=== PATIENT | female | born 1990 | race Caucasian/White ===

== ENCOUNTER 2020-02-11 11:14 | Emergency (ER) | payer OTHER, SELFPAY ==
[2020-02-11 11:25] VITALS: BP 122/74; PULSE 70; RESP 16; TEMP 37.3; O2SAT 99
--- NOTE | 2020-02-11 12:38 | ED.GENADULT ---
HPI - General Adult General Chief complaint: Upper Respiratory Infection Stated complaint: Fever/Cough/ear pain Time Seen by Provider: 02/11/20 12:28 Source: patient and RN notes reviewed Mode of arrival: ambulatory Limitations: no limitations History of Present Illness HPI narrative: 29-year-old female presents with complaints of upper respiratory infection symptoms, fever, body aches, low-grade fever, cough, RT ear pain, and intermittent headaches (not the worst of her life) for the past 2 days. No treatment. George said that they took her temperature at school this morning noted at 99.2 Fahrenheit. Dry cough with intermittent productive cough (green phlegm). Rhinorrhea and nasal congestion. Exacerbating factors smoke exposure. Low-grade fevers, highest 99.2 F, tympanic without chills. No nausea, vomiting, and abdominal pain. Denies chest pain, dyspnea, coughing up blood, difficulty swallowing, jaw pain, dental pain, facial pain, foreign body sensation, and rash. George denies being , LMP 02/06/20. Some parts of this dictation were generated by voice recognition software and may contain typographical and/or grammatical inaccuracies. Related Data Home Medications Medication Instructions Recorded Confirmed buprenorphine HCl 8 mg SUBLINGUAL DAILY 02/11/20 02/11/20 buprenorphine HCl 12 PO DAILY 02/11/20 Allergies Allergy/AdvReac Type Severity Reaction Status Date / Time No Known Allergies Allergy Verified 02/11/20 11:35 Review of Systems Review of Systems: Narrative: CONSTITUTIONAL: Complains of low-grade fever. Denies chills, sweats. EYES: Denies visual changes, redness, discharge. ENT: Complains of rhinorrhea, congestion, RT otalgia. Denies sore throat. CARDIOVASCULAR: Denies chest pain, palpitations, edema. RESPIRATORY: Denies dyspnea, wheezing. Complains of dry cough, intermittent productive cough. GASTROINTESTINAL: Denies abdominal pain, nausea, vomiting, diarrhea. GENITOURINARY: Denies dysuria, hematuria, abnormal discharge. SKIN: Denies rash or itching. MUSCULOSKELETAL: Denies acute back pain, joint pain. Complains of myalgia. NEUROLOGIC: Denies numbness or focal weakness. PSYCHIATRIC: Denies anxiety or depression. Complains of intermittent LASSITER. All systems reviewed & are unremarkable except as noted in HPI and below. [facility] Past Medical History Medical History (Updated 02/12/20 @ 00:00 by Andrew Randhawa) Cubital tunnel syndrome Substance abuse Surgical History Surgical History (Updated 02/11/20 @ 12:49 by ISRRAEL Mcpherson) S/P cubital tunnel release LT arm Family History Family History (Updated 02/11/20 @ 12:50 by ISRRAEL Mcpherson) Father Asthma Grandparent Diabetes mellitus Grandparent Abnormality of lung Social History Social History (Updated 02/11/20 @ 12:51 by ISRRAEL Mcpherson) Smoking packs per day: 0.5 Smoking cigarettes per day: 10.0 Years smoked: 12 Smoking pack-years: 6.00 Smoking status: Current every day smoker Second hand tobacco smoke exposure: Yes Alcohol intake: current Substance use: former Substance use type: opiates Other substance usage details: Currently taken Suboxone daily Living arrangements: with family Occupation/Education: student Gender identity (if verbalized by the patient): Female Comments At time of signature, agree with nurse past medical, surgical, social, and family history. There is no relevant family history pertinent to the presenting complaint. Exam Narrative: Exam Narrative: GENERAL: This is a well-nourished, well-developed patient, in no apparent distress. Speaks in full sentences and ambulates with steady gait without dyspnea. HEAD: normocephalic, atraumatic. EYES: PERRL. Sclera clear/white. Vision is grossly intact. EARS: External ears normal, auditory canals clear and without drainage, TMs normal without perforation. Hearing grossly intact. NOSE: External nos
== END 2020-02-11 12:50 | disposition home or self-care (01) ==
PROVIDERS: Emergency Provider Nurse Practitioner Family
DX: J06.9 Acute upper respiratory infection, unspecified (principal); F17.210 Nicotine dependence, cigarettes, uncomplicated
CPT/HCPCS: 99203; G0463

== ENCOUNTER 2021-02-18 13:23 | Emergency (ER) | payer OTHER, SELFPAY ==
[2021-02-18 13:44] VITALS: BP 124/66; PULSE 86; RESP 16; TEMP 36.7; O2SAT 98
--- NOTE | 2021-02-18 14:01 | ED.GENADULT ---
HPI - General Adult General Chief complaint: Urogenital-Female Stated complaint: Poss uti Time Seen by Provider: 02/18/21 14:01 Source: patient and RN notes reviewed (discharge information entered for triage note) Mode of arrival: ambulatory Limitations: no limitations History of Present Illness HPI narrative: 30-year-old 17 weeks gestation female presents with intermittent pelvic discomfort and moderate blood noted on a dip stick only 1 day ago. Makayla reports having intermittent pelvic discomfort and moderate blood on a urine dip stick on Saturday02/17/2021, no further discomfort at this time. Makayla reports she contacted her MD and was [facility] to [facility]. No treatment. Denies dysuria (no burning, frequency, and urgency). No treatment.? Denies fever or chills. No vaginal discharge.? No concerns for STDs. Denies rough intercourse. No exacerbating factors.? Denies visible hematuria or vaginal bleeding. No flank pain. Denies nausea, vomiting, and abdominal pain. Tolerating liquids well. LMP unknowns reports a long time ago. Remains active. Makayla reports having movement prior to this provider entering exam room for assessment. The patient reports she have not been diagnosed with COVID-19. The patient reports she received the first COVID-19 vaccine February 08, 2021. The patient reports she is not waiting for the results of a COVID-19 lab test. The patient reports she do not have weakness, or fatigue. The patient reports she do not have a new or worsening cough or shortness of breath. Denies chest pain. The patient reports she do not have any rhinorrhea, congestion, sore throat, loss of taste or smell, and diarrhea. Denies recent traveling. Denies concerns for COVID-19 or exposures been home with limited outdoor exposure except for essential household needs, work, and return home. At this time, patient is not suspected of having COVID-19. Some parts of this dictation were generated by voice recognition software and may contain typographical and/or grammatical inaccuracies. Related Data Home Medications Medication Instructions Recorded Confirmed buprenorphine HCl 8 mg SUBLINGUAL DAILY 02/11/20 02/11/20 buprenorphine HCl 12 PO DAILY 02/11/20 Allergies Allergy/AdvReac Type Severity Reaction Status Date / Time No Known Allergies Allergy Verified 02/18/21 14:00 Review of Systems Review of Systems: Narrative: CONSTITUTIONAL: Denies fever, chills, sweats. EYES: Denies visual changes, redness, discharge. ENT: Denies rhinorrhea, congestion, sore throat, otalgia. CARDIOVASCULAR: Denies chest pain, palpitations, edema. RESPIRATORY: Denies dyspnea, wheezing, cough. GASTROINTESTINAL: Denies abdominal pain, nausea, vomiting, diarrhea. GENITOURINARY: Denies dysuria (burning, frequency, and urgency), visible hematuria, abnormal discharge. Complains of pelvic discomfort-(Resolved) and moderate blood noted on a dip stick SKIN: Denies rash or itching. MUSCULOSKELETAL: Denies acute back pain, joint pain, or myalgia. NEUROLOGIC: Denies numbness or focal weakness. PSYCHIATRIC: Denies anxiety or depression. All systems reviewed & are unremarkable except as noted in HPI and below. [facility] Past Medical History Medical History Cubital tunnel syndrome Substance abuse Surgical History Surgical History S/P cubital tunnel release LT arm Family History Family History Father Asthma Grandparent Diabetes mellitus Grandparent Abnormality of lung Social History Social History Smoking packs per day: 0.5 Smoking cigarettes per day: 10.0 Years smoked: 12 Smoking pack-years: 6.00 Smoking status: Current every day smoker Second hand tobacco smoke exposure: Yes Alcohol intake: cu
--- NOTE | 2021-02-18 14:17 | PC.NURSE ---
[facility] [address]. D ALBIN RN
== END 2021-02-18 14:33 | disposition home or self-care (01) ==
PROVIDERS: Emergency Provider Nurse Practitioner Family; PCP Internal Medicine
DX: O90.89 Other complications of the puerperium, not elsewhere classified (principal); R31.9 Hematuria, unspecified; Z3A.17 17 weeks gestation of pregnancy; O99.332 Smoking (tobacco) complicating pregnancy, second trimester; F17.210 Nicotine dependence, cigarettes, uncomplicated
CPT/HCPCS: 81003; 87077; 87086; 87088; 99213; G0463

== ENCOUNTER 2021-03-15 08:53 | Emergency (ER) | payer OTHER, SELFPAY ==
[2021-03-15 09:01] VITALS: BP 103/48; PULSE 66; RESP 16; TEMP 36.3; O2SAT 98
--- NOTE | 2021-03-15 09:03 | ED.URI ---
HPI - URI/Sore Throat General Chief Complaint: Upper Respiratory Infection Stated Complaint: Sore Throat,Congestion Time Seen by Provider: 03/15/21 09:03 Source: patient and RN notes reviewed History of Present Illness HPI Narrative: Patient is a 30-year-old female who presents the urgent care with complaints of sore throat and congestion. Patient states that she is also had some ear fullness . States that she was swabbed at [facility] for both Covid and flu, which were negative. Patient states that she is 21 weeks and is currently not taking anything [id number] for her symptoms. Patient denies of any fever, nausea, vomiting. States that her symptoms started 3 days ago. No other acute complaints. No acute distress noted. Patient aware of the plan of care. Some parts of this dictation were generated by voice recognition software and may contain typographical and/or grammatical inaccuracies. Related Data Home Medications Medication Instructions Recorded Confirmed buprenorphine HCl 8 mg SUBLINGUAL DAILY 03/15/21 03/15/21 fluoxetine 20 mg PO DAILY 03/15/21 03/15/21 vit no.[id number] 1 tablet PO DAILY 03/15/21 03/15/21 [ Vitamin] Allergies Allergy/AdvReac Type Severity Reaction Status Date / Time No Known Allergies Allergy Verified 03/15/21 09:12 Review of Systems Review of Systems: Narrative: CONSTITUTIONAL: Denies fever, chills, or sweats. EYES: Denies visual changes, redness, or discharge. ENT: Reports of sore throat, bilateral ear fullness and congestion CARDIOVASCULAR: Denies chest pain, palpitations, or edema. RESPIRATORY: Denies cough or dyspnea. GASTROINTESTINAL: Denies abdominal pain, nausea, vomiting, or diarrhea. GENITOURINARY: Denies dysuria or hematuria. SKIN: Denies rash or itching. MUSCULOSKELETAL: Denies back pain, joint pain, or myalgia. NEUROLOGIC: Denies headache, numbness, or weakness. All other systems reviewed are negative, except as documented in HPI. [facility] Family History Family History (Updated 07/22/14 @ 07:13 by DOCTOR UNKNOWN) Mother Depression Grandparent Hypertension Family history of Alzheimer's disease Father Asthma Other Family history of mental disorder Social History Social History Second hand tobacco smoke exposure: Yes Alcohol intake: current Comments At the time of my signature, I reviewed and agree with the nursing past medical, surgical, social, and family history. There is no relevant family history pertinent to the patient complaint. Exam Narrative: Exam Narrative: GENERAL: This is a well-nourished, well-developed patient, in no apparent distress. HEAD: normocephalic, atraumatic. EYES: PERRL. Sclera clear/white. Vision is grossly intact. EARS: External ears normal, auditory canals clear and without drainage, TMs normal without perforation. Hearing grossly intact. NOSE: External nose normal with no obvious nasal discharge, nares without redness, no rhinorrhea. THROAT: Mucous membranes moist, posterior pharynx clear. Moderate postnasal drainage NECK: Neck supple, non-tender without lymphadenopathy, masses or thyromegaly. CARDIOVASCULAR: Regular rate and rhythm without murmurs, gallops, or rubs. RESPIRATORY: Clear to auscultation. Breath sounds equal bilaterally. No wheezes, rales, or rhonchi. SKIN: warm, intact with no suspicious lesions or rash, good texture and turgor. NEURO: awake, alert, and oriented to person, place and time. There were no obvious focal neurologic abnormalities. EXTREMITIES: No clubbing, cyanosis, or edema. Course Vital Signs Vital signs: Vital Signs Temperature 97.3 F L 03/15/21 09:01 Pulse Rate 66 03/15/21 09:01 Respiratory Rate 16 03/15/21 09:01 Blood Pressure 103/48 L 03/15/21 09:01 Pulse Oximetry 98 03/15/21 09:01 Temperature 97.3 F L 03/15/21 09:01 Pulse Rate 66 03/15/21 09:01 Respiratory Rate 16 03/15/21 09:01 Blood Pressure 103/48 L 04
== END 2021-03-15 09:20 | disposition home or self-care (01) ==
PROVIDERS: Emergency Provider Nurse Practitioner Family
DX: J02.9 Acute pharyngitis, unspecified (principal); F41.9 Anxiety disorder, unspecified
CPT/HCPCS: 87081; 87880; 99213; G0463

== ENCOUNTER 2021-04-10 09:51 | Emergency (ER) | payer OTHER, SELFPAY ==
[2021-04-10 09:56] VITALS: BP 113/58; PULSE 67; RESP 20; TEMP 36.4; O2SAT 98
--- NOTE | 2021-04-10 10:15 | ED.GENADULT ---
HPI - General Adult General Chief complaint: Nausea/Vomiting/Diarrhea Stated complaint: nausea weak Time Seen by Provider: 04/10/21 10:16 Source: patient and RN notes reviewed Mode of arrival: ambulatory Limitations: no limitations History of Present Illness HPI narrative: 30-year-old 25 weeks gestation female presents with complaints of increase heartburn, nausea, and intermittent vomiting, for the past 3 days. Lory reports increasing symptoms with . Keeping down chicken noodle soup and small amounts of water. Here today for omeprazole. No diarrhea, constipation, or abdominal pain. Tolerating some po intake. Saltine crackers and other home remedies without relief. Exacerbating factors consist of eating and drinking. Denies fever or chills. Denies headache, dizziness, back pain, dysuria, and blood in stool. Denies pelvic pain, vaginal discharge, or hematuria. Remains active. The patient reports she have not been diagnosed with COVID-19. The patient reports she recieved 2 Pfizer COVID-19 vaccines. The patient reports she is not waiting for the results of a COVID-19 lab test. The patient reports she do not have sweats, weakness, or fatigue. The patient reports she do not have a new or worsening cough or shortness of breath. Denies chest pain. The patient reports she do not have any rhinorrhea, congestion, sore throat, loss of taste or smell. Denies recent traveling. Denies concerns for COVID-19 or exposures been home with limited outdoor exposure except for essential household needs, work, and return home. At this time, patient is not suspected of having COVID-19. Some parts of this dictation were generated by voice recognition software and may contain typographical and/or grammatical inaccuracies. Related Data Home Medications Medication Instructions Recorded Confirmed buprenorphine HCl See Rx Instructions .ROUTE .COMPLEX 04/10/21 04/10/21 vit no.[id number] 1 tablet PO DAILY 04/10/21 04/10/21 [Classic ] Allergies Allergy/AdvReac Type Severity Reaction Status Date / Time No Known Allergies Allergy Verified 04/10/21 10:05 Review of Systems Review of Systems: Narrative: CONSTITUTIONAL: Denies fever, chills, sweats. EYES: Denies visual changes, redness, discharge. ENT: Denies rhinorrhea, congestion, sore throat, otalgia. CARDIOVASCULAR: Denies chest pain, palpitations, edema. RESPIRATORY: Denies dyspnea, wheezing, cough. GASTROINTESTINAL: Denies abdominal pain, diarrhea. Complains of vomiting and nausea. GENITOURINARY: Denies dysuria, hematuria, abnormal discharge. SKIN: Denies rash or itching. MUSCULOSKELETAL: Denies acute back pain, joint pain, or myalgia. NEUROLOGIC: Denies numbness or focal weakness. PSYCHIATRIC: Denies anxiety or depression. All systems reviewed & are unremarkable except as noted in HPI and below. [facility] Past Medical History Medical History Cubital tunnel syndrome Substance abuse Surgical History Surgical History S/P cubital tunnel release LT arm Family History Family History Father Asthma Grandparent Diabetes mellitus Grandparent Abnormality of lung Social History Social History Smoking packs per day: 0.5 Smoking cigarettes per day: 10.0 Years smoked: 12 Smoking pack-years: 6.00 Smoking status: Current every day smoker Second hand tobacco smoke exposure: Yes Alcohol intake: current Substance use: former Substance use type: opiates Other substance usage details: Currently taken Suboxone daily Gender identity (if verbalized by the patient): Female Comments At time of signature, I have reviewed and agree with nursing past medical, surgical, social, and family history. Please see n
== END 2021-04-10 10:40 | disposition home or self-care (01) ==
PROVIDERS: Emergency Provider Nurse Practitioner Family
DX: O21.0 Mild hyperemesis gravidarum (principal); Z3A.25 25 weeks gestation of pregnancy; O99.334 Smoking (tobacco) complicating childbirth; F17.210 Nicotine dependence, cigarettes, uncomplicated
CPT/HCPCS: 81003; 87086; 99213; G0463